=== PATIENT | female | born 1980 | race Caucasian/White ===

== ENCOUNTER 2018-07-14 00:54 | Emergency (ER) | payer OTHER, SELFPAY ==
[2018-07-14] MEDS ORDERED: diphenhydrAMINE 25 MG CAP ONE (01:16)
[2018-07-14] MEDS ORDERED: Metoclopramide HCl 10 MG TAB ONE (01:16)
== END 2018-07-14 01:26 | disposition home or self-care (01) ==
LOC: SCSER 00:54
DX: K02.9 Dental caries, unspecified (principal); R51 Headache; K50.90 Crohn's disease, unspecified, without complications; F17.210 Nicotine dependence, cigarettes, uncomplicated; Z79.899 Other long term (current) drug therapy
CPT/HCPCS: 99283